=== PATIENT | female | born 1990 | race African-American/Black ===

== ENCOUNTER 2022-05-19 20:59 | Emergency (ER) | payer OTHER ==
[2022-05-19 21:06] VITALS: BMI 25.3
[2022-05-19 21:58] VITALS: BP 109/68; PULSE 73; RESP 20; TEMP 98.1
== END 2022-05-19 22:40 | disposition home or self-care (01) ==
LOC: JER 20:59
DX: O9A.212 Injury, poisoning and certain other consequences of external causes complicating pregnancy, second trimester (principal); S20.211A Contusion of right front wall of thorax, initial encounter; V89.2XXA Person injured in unspecified motor-vehicle accident, traffic, initial encounter; Z3A.25 25 weeks gestation of pregnancy
CPT/HCPCS: 99281-25

== ENCOUNTER 2022-08-31 17:25 | Inpatient (IN) | payer OTHER ==
[2022-08-31] MEDS ORDERED: DEXTROSE 5%-LACTATED RINGERS 1,000 ML IV ONE (18:45)
[2022-08-31] MEDS: DEXTROSE 5%-LACTATED RINGERS 1,000 ML IV SCH (19:30)
[2022-08-31 21:03] LABS: BASO % 0.4 % (0-2.0); EOS % 0.2 % (0-4.5); HEMATOCRIT 38.4 % (32.4-45.2); HEMOGLOBIN 12.7 GM/dL (10.7-15.3); LYMPH % 13.3 % (8-40); MCH 29.3 pg (25.7-33.7); MCHC 33.2 g/dl (32.0-36.0); MEAN CELL VOLUME 88.3 fl (80-96); MEAN PLT VOLUME 7.7 fl (7.5-11.1); NEUT % 74.1 % (42.8-82.8); PLATELET COUNT 237 10^3/uL (134-434); RBC 4.34 M/mm3 (3.60-5.2); RDW 15.2 % (11.6-15.6); WHITE BLOOD COUNT 8.7 K/mm3 (4.0-10.0)
[2022-08-31 21:07] VITALS: BMI 28.6
[2022-08-31 21:14] LABS: INR 1.01 (0.83-1.09); PROTHROMBIN TIME (PATIENT) 11.7 SEC (9.7-13.0)
[2022-08-31 21:42] LABS: CALCIUM 8.8 mg/dL (8.5-10.1)
[2022-08-31 21:43] LABS: BLOOD UREA NITROGEN 3.6 mg/dL (7-18)
[2022-08-31 21:46] LABS: CREATININE 0.7 mg/dL (0.55-1.3)
[2022-08-31 23:16] LABS: HIV INTERPRETATION NEGATIVE (NEGATIVE)
[2022-08-31] MEDS ORDERED: morphine SULFATE (PF) 1 MG/2 ML SYRINGE ONE (23:30)
[2022-08-31] MEDS ORDERED: ePHEDrine SULFATE 50 MG/1 ML AMPULE ONE (23:32)
[2022-09-01] MEDS ORDERED: METHYLERGONOVINE MALEATE 0.2 MG/1 ML AMP IM PRN (00:33)
[2022-09-01] MEDS ORDERED: morphine SULFATE/PF 1 MG/2 ML (2cc Syringe - QUVA) EP ONE (00:46)
[2022-09-01] MEDS ORDERED: PROMETHAZINE HCL 25 MG/1 ML VIAL IVPB PRN (00:47)
[2022-09-01] MEDS ORDERED: ACETAMINOPHEN INJECTION 100 ML IVPB ONE (01:54)
[2022-09-01] MEDS: ACETAMINOPHEN 1000 MG/100 ML BAG IVPB SCH ×4 (01:55→18:40)
[2022-09-01] MEDS: IBUPROFEN 800 MG/8 ML IJ IVPB SCH ×3 (03:57→17:43)
[2022-09-01] MEDS: OXYTOCIN 20 UNITS in 0.9% NS 20 UNIT/1,000 ML INFUS.BAG IV SCH ×2 (06:03)
[2022-09-01] MEDS ORDERED: oxyCODONE HCL 5 MG TABLET PO PRN ×2 (12:33)
[2022-09-01] MEDS: DEXTROSE 5%-LACTATED RINGERS 1,000 ML IV SCH (20:07)
[2022-09-02] MEDS ORDERED: BISACODYL 10 MG SUPP.RECT RC PRN (00:33)
[2022-09-02] MEDS: SIMETHICONE 80 MG TAB.CHEW (FP) PO PRN ×2 (06:45→23:22)
[2022-09-02 09:01] LABS: BASO % 0.3 % (0-2.0); EOS % 0.2 % (0-4.5); HEMATOCRIT 33.4 % (32.4-45.2); HEMOGLOBIN 11.1 GM/dL (10.7-15.3); LYMPH % 8.8 % (8-40); MCH 29.5 pg (25.7-33.7); MCHC 33.3 g/dl (32.0-36.0); MEAN CELL VOLUME 88.6 fl (80-96); MEAN PLT VOLUME 7.6 fl (7.5-11.1); MONO % 7.4 % (3.8-10.2); NEUT % 83.3 % (42.8-82.8); PLATELET COUNT 222 10^3/uL (134-434); RBC 3.77 M/mm3 (3.60-5.2); RDW 15.2 % (11.6-15.6); WHITE BLOOD COUNT 9.9 K/mm3 (4.0-10.0)
[2022-09-02] MEDS: IBUPROFEN 600 MG TABLET (FP) PO PRN ×2 (12:30→23:22)
[2022-09-02] MEDS: SENNOSIDES/DOCUSATE COMBO (SENNA PLUS) TABLET (UD) PO PRN (22:20)
[2022-09-03 09:35] VITALS: RESP 18
[2022-09-03] MEDS: IBUPROFEN 600 MG TABLET (FP) PO PRN (09:39)
[2022-09-03] MEDS ORDERED: ACETAMINOPHEN 500 MG TABLET (FP) PO PRN (10:42)
[2022-09-03] MEDS ORDERED: POLYETHYLENE GLYCOL (HEALTHYLAX) 3350 17 GM PACKET PO PRN (10:43)
[2022-09-03] MEDS: SENNOSIDES/DOCUSATE COMBO (SENNA PLUS) TABLET (UD) PO PRN (22:42)
[2022-09-04 08:12] LABS: BASO % 0.8 % (0-2.0); EOS % 0.9 % (0-4.5); HEMATOCRIT 31.9 % (32.4-45.2); HEMOGLOBIN 10.8 GM/dL (10.7-15.3); LYMPH % 16.5 % (8-40); MCH 30.6 pg (25.7-33.7); MCHC 33.9 g/dl (32.0-36.0); MEAN CELL VOLUME 90.2 fl (80-96); MEAN PLT VOLUME 7.4 fl (7.5-11.1); MONO % 8.4 % (3.8-10.2); NEUT % 73.4 % (42.8-82.8); PLATELET COUNT 264 10^3/uL (134-434); RBC 3.54 M/mm3 (3.60-5.2); RDW 15.4 % (11.6-15.6); WHITE BLOOD COUNT 6.8 K/mm3 (4.0-10.0)
[2022-09-04] MEDS: IBUPROFEN 600 MG TABLET (FP) PO PRN (10:06)
[2022-09-04 10:11] VITALS: BP 119/69; PULSE 81; TEMP 98.2
== END 2022-09-04 14:03 | disposition home or self-care (01) | DRG 540 ==
LOC: JDEL 17:25 → JLDR 19:15 → J3W 09-01 02:42
PROVIDERS: ADMIT Obstetrics & Gynecology; ATTEND Obstetrics & Gynecology
PROC: 10D00Z1 Extraction of Products of Conception, Low, Open Approach (ICD-10-PCS; principal; 2022-08-31)
DX: O76 Abnormality in fetal heart rate and rhythm complicating labor and delivery (principal); O42.02 Full-term premature rupture of membranes, onset of labor within 24 hours of rupture; Z3A.39 39 weeks gestation of pregnancy; Z37.0 Single live birth
CPT/HCPCS: 36415; 80048; 85025; 85610; 85730; 86780; 86850; 86900; 86901; 87389; 88307-TC; 94010; C9803-CS; U0003; U0005

== ENCOUNTER 2022-10-01 17:27 | Emergency (ER) | payer OTHER ==
[2022-10-01 17:40] VITALS: BP 116/62; PULSE 75; RESP 18; TEMP 98; BMI 25.3
== END 2022-10-01 18:55 | disposition home or self-care (01) ==
LOC: JER 17:27 → JERFT 17:27
DX: O90.0 Disruption of cesarean delivery wound (principal); Z48.00 Encounter for change or removal of nonsurgical wound dressing
CPT/HCPCS: 99282-25

== ENCOUNTER 2022-11-08 23:03 | Emergency (ER) | payer OTHER ==
[2022-11-08 23:11] VITALS: BP 98/71; PULSE 75; RESP 16; TEMP 98; BMI 25.9
[2022-11-09] MEDS ORDERED: IBUPROFEN 100 MG/5 ML UNIT DOSE CUPS PO ONE (00:08)
[2022-11-09] MEDS ORDERED: LIDOCAINE VISCOUS 2% ORAL/TOP 15 ML UNIT-DOSE CUP MM ONE (00:08)
[2022-11-09] MEDS ORDERED: valACYclovir HCL 1000 MG TABLET PO ONE (00:09)
[2022-11-09] MEDS ORDERED: valACYclovir HCL 500 MG TABLET (FP) ONE (00:22)
[2022-11-09] MEDS ORDERED: IBUPROFEN 100 MG/5 ML UNIT DOSE CUPS ONE (00:22)
[2022-11-09] MEDS ORDERED: LIDOCAINE VISCOUS 2% ORAL/TOP 15 ML UNIT-DOSE CUP ONE (00:29)
== END 2022-11-09 02:00 | disposition home or self-care (01) ==
LOC: JERFT 23:03 → JER 23:03 → JERFT 11-09 02:00
DX: B00.2 Herpesviral gingivostomatitis and pharyngotonsillitis (principal); Z20.822 Contact with and (suspected) exposure to COVID-19
CPT/HCPCS: 0241U-QW; 99283-25